=== PATIENT | male | born 1960 | race Caucasian/White ===

== ENCOUNTER 2017-02-19 10:48 | Emergency (ER) | payer OTHER ==
[~2017-02-19] VITALS: Ht 185.4 cm; Wt 80.0 kg
[2017-02-19 11:00] VITALS: PULSE 100; RESP 18; TEMP 97.9; O2SAT 100
[2017-02-19] MEDS ORDERED: PERC5TAB12 PO (11:10)
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
[2017-02-19] MEDS ORDERED: oxyCODONE/ACETAMINOPHEN 5 MG/325 MG TAB PO ONE (11:15)
== END 2017-02-19 11:40 | disposition home or self-care (01) ==
LOC: NEPD 10:48
DX: G89.29 Other chronic pain (principal); M54.9 Dorsalgia, unspecified; Z72.0 Tobacco use
CPT/HCPCS: 99283